=== PATIENT | female | born 1940 | race Caucasian/White ===

== ENCOUNTER 2023-07-23 15:25 | Inpatient (IN) ==
[2023-07-23] MEDS ORDERED: IOPAMIDOL 100 ML BOTTLE IV ONE (15:26)
[2023-07-23] MEDS ORDERED: cefTRIAXone 2 GM in DEXTROSE 5% IN WATER 50 ML IV ONE (16:00)
[2023-07-23 16:01] LABS: POC Calcium, Ionized 1.18 (1.16-1.32); POC Creatinine 1.4 (0.6-1.2); POC Potassium 4.4 (3.3-5.1)
[2023-07-23] MEDS ORDERED: AZITHROMYCIN 250 MG TABLET PO ONE (16:07)
[2023-07-23 16:56] LABS: Basophils # (Auto) 0.04 K/mcL (0.00-0.30); Basophils % (Auto) 0.3 % (0.0-2.0); Eosinophils # (Auto) 0 K/mcL (0.00-0.70); Eosinophils % (Auto) 0 % (0.0-7.0); Hematocrit 39.1 % (34.1-44.9); Hemoglobin 12.7 g/dL (11.2-15.7); Lymphocytes # (Auto) 1.22 K/mcL (1.50-4.80); Lymphocytes % (Auto) 8.5 % (15.5-49.0); Mean Cell Volume 89.5 fL (80.0-100.0); Mean Corpuscular HGB Conc 32.5 g/dL (31.0-36.0); Monocytes # (Auto) 2.26 K/mcL (0.10-0.90); Monocytes % (Auto) 15.8 % (1.0-12.0); Neutrophils % (Auto) 65.3 % (38.0-78.0); Platelet Count 122 K/mcL (140-440); RBC 4.37 M/mcL (3.59-5.38); Red Cell Distribution Width 13.6 % (11.5-14.5); WBC 14.3 K/mcL (4.5-11.0)
[2023-07-23] MEDS ORDERED: 0.9 % SODIUM CHLORIDE 250 ML IV SCH (17:15)
[2023-07-23] MEDS: ESMOLOL 2,500 MG in PREMIX 1 BAG IV SCH (17:40)
[2023-07-23 19:01] LABS: Albumin 4.2 gm/dL (3.2-5.2); Bilirubin,Direct 0.2 mg/dL (<0.3); Bilirubin,Total 1.1 mg/dL (0.1-1.0)
[2023-07-23 19:16] LABS: Thyroid Stimulating Hormone 3.5 uIU/mL (0.27-5.01)
[2023-07-23] MEDS ORDERED: POTASSIUM CHLORIDE 20 MEQ TABLET PO PRN ×2 (19:31)
[2023-07-23] MEDS ORDERED: SENNOSIDES 1 TABLET PO PRN (19:31)
[2023-07-23] MEDS ORDERED: ONDANSETRON 4 MG/2 ML VIAL IV PRN (19:31)
[2023-07-23] MEDS ORDERED: 0.9 % SODIUM CHLORIDE 1,000 ML IV SCH (19:31)
[2023-07-23] MEDS ORDERED: DEXTROSE 50% 50 ML VIAL IV PRN (19:31)
[2023-07-23] MEDS ORDERED: MAGNESIUM SULFATE 2 GM/50 ML BAG IV PRN (19:31)
[2023-07-23] MEDS ORDERED: DEXTROSE 31 GM ORAL.SUSP PO PRN (19:31)
[2023-07-23] MEDS ORDERED: METOPROLOL TARTRATE 5 MG/5 ML VIAL IV PRN (19:31)
[2023-07-23] MEDS ORDERED: POLYETHYLENE GLYCOL 3350 17 GM PACKET PO PRN (19:31)
[2023-07-23] MEDS ORDERED: POTASSIUM CHLORIDE 40 MEQ in DEXTROSE 5% IN WATER 500 ML IV PRN (19:31)
[2023-07-23] MEDS ORDERED: MAGNESIUM SULFATE 2 GM/50 ML BAG IV ONE (20:14)
[2023-07-23] MEDS: METOPROLOL TARTRATE 25 MG TABLET PO SCH (20:29)
[2023-07-23] MEDS: INSULIN LISPRO 1 UNIT/0.01 ML UNIT SQ SCH (20:57)
[2023-07-23] MEDS: DOCUSATE SODIUM 100 MG CAPSULE PO SCH (21:59)
[2023-07-23] MEDS ORDERED: INSULIN GLARGINE, HUMAN 1 UNIT/0.01 ML SQ ONE (22:04)
[2023-07-23] MEDS: INSULIN GLARGINE, HUMAN 1 UNIT/0.01 ML SQ SCH (22:07)
[2023-07-23] MEDS: CEFEPIME 2 GM VIAL IV SCH (22:08)
[2023-07-24] MEDS: ESMOLOL 2,500 MG in PREMIX 1 BAG IV SCH ×3 (01:22→19:00)
[2023-07-24] MEDS: CEFEPIME 2 GM VIAL IV SCH ×2 (05:46→19:09)
[2023-07-24 06:30] LABS: Basophils # (Auto) 0.05 K/mcL (0.00-0.30); Basophils % (Auto) 0.4 % (0.0-2.0); Eosinophils # (Auto) 0.01 K/mcL (0.00-0.70); Eosinophils % (Auto) 0.1 % (0.0-7.0); Hematocrit 35.9 % (34.1-44.9); Hemoglobin 11.6 g/dL (11.2-15.7); Lymphocytes % (Auto) 8.6 % (15.5-49.0); Mean Cell Volume 91.8 fL (80.0-100.0); Mean Corpuscular HGB Conc 32.3 g/dL (31.0-36.0); Mean Platelet Volume 10.8 fL (8.8-12.5); Monocytes # (Auto) 1.62 K/mcL (0.10-0.90); Neutrophils % (Auto) 67.3 % (38.0-78.0); Platelet Count 107 K/mcL (140-440); RBC 3.91 M/mcL (3.59-5.38); WBC 11.6 K/mcL (4.5-11.0)
[2023-07-24 06:55] LABS: ALT/SGPT 10 U/L (<40); AST/SGOT 24 U/L (<32); Albumin 3.4 gm/dL (3.2-5.2); Albumin/Globulin Ratio 1.7 (1.0-2.3); Alkaline Phosphatase 57 U/L (39-117); Bilirubin,Direct < 0.2 mg/dL (0-0.3); Bilirubin,Total 0.8 mg/dL (0.1-1.0); Blood Urea Nitrogen 27 mg/dL (8-23); Calcium 8.5 mg/dL (8.6-10.4); Carbon Dioxide 18 mmol/L (22-30); Chloride 105 mmol/L (96-108); Glomerular Filtration Rate 38; Glucose 129 mg/dL (70-105); Lactate Dehydrogenase 410 U/L (135-225); Phosphorous 3.6 mg/dL (2.5-4.5); Triglycerides 129 mg/dL (<150); Uric Acid 5.4 mg/dL (2.5-8.0)
[2023-07-24] MEDS: ACETAMINOPHEN 325 MG TABLET PO PRN (07:22)
[2023-07-24] MEDS: INSULIN LISPRO 1 UNIT/0.01 ML UNIT SQ SCH ×4 (07:32→20:33)
[2023-07-24] MEDS: LOPERAMIDE 2 MG CAPSULE PO PRN (07:50)
[2023-07-24] MEDS: OMEPRAZOLE 20 MG CAPSULE PO SCH (08:41)
[2023-07-24] MEDS: LEVOTHYROXINE 150 MCG TABLET PO SCH (08:41)
[2023-07-24] MEDS ORDERED: DEXAMETHASONE 4 MG TABLET PO SCH (09:00)
[2023-07-24] MEDS: ASPIRIN 81 MG TAB.CHEW PO SCH (09:07)
[2023-07-24] MEDS: HYDROXYCHLOROQUINE 200 MG TABLET PO SCH ×2 (09:07→20:33)
[2023-07-24] MEDS: levETIRAcetam 500 MG TABLET PO SCH ×2 (09:07→20:33)
[2023-07-24] MEDS: amLODIPine 10 MG TABLET PO SCH (09:07)
[2023-07-24] MEDS: ENOXAPARIN 40 MG/0.4 ML SYRINGE SQ SCH (09:07)
[2023-07-24] MEDS: DOCUSATE SODIUM 100 MG CAPSULE PO SCH ×2 (09:07→20:23)
[2023-07-24] MEDS: SODIUM BICARBONATE 650 MG TABLET PO SCH ×3 (09:07→20:32)
[2023-07-24] MEDS: METOPROLOL TARTRATE 25 MG TABLET PO SCH ×2 (09:08→20:33)
[2023-07-24] MEDS: AZITHROMYCIN 500 MG in DEXTROSE 5% IN WATER 250 ML IV SCH (10:30)
[2023-07-24] MEDS: DICYCLOMINE 20 MG TABLET PO SCH ×2 (10:30→20:33)
[2023-07-24] MEDS: GABAPENTIN 100 MG CAPSULE PO SCH ×2 (15:04→20:33)
[2023-07-24] MEDS: INSULIN GLARGINE, HUMAN 1 UNIT/0.01 ML SQ SCH (20:33)
[2023-07-25] MEDS: ESMOLOL 2,500 MG in PREMIX 1 BAG IV SCH (03:27)
[2023-07-25] MEDS: CEFEPIME 2 GM VIAL IV SCH ×2 (05:54→16:58)
[2023-07-25 06:53] LABS: ALT/SGPT 10 U/L (<40); AST/SGOT 16 U/L (<32); Albumin 3.3 gm/dL (3.2-5.2); Albumin/Globulin Ratio 1.5 (1.0-2.3); Alkaline Phosphatase 57 U/L (39-117); Bilirubin,Direct < 0.2 mg/dL (0-0.3); Bilirubin,Total 0.6 mg/dL (0.1-1.0); Blood Urea Nitrogen 35 mg/dL (8-23); Calcium 8.6 mg/dL (8.6-10.4); Carbon Dioxide 15 mmol/L (22-30); Chloride 105 mmol/L (96-108); Globulin 2.2 gm/dL (2.2-3.7); Glomerular Filtration Rate 32; Glucose 250 mg/dL (70-105); Lactate Dehydrogenase 362 U/L (135-225); Phosphorous 3.9 mg/dL (2.5-4.5); Triglycerides 153 mg/dL (<150); Uric Acid 6.3 mg/dL (2.5-8.0)
[2023-07-25] MEDS ORDERED: ESMOLOL 2,500 MG in PREMIX 1 BAG IV PRN (07:45)
[2023-07-25] MEDS: DOCUSATE SODIUM 100 MG CAPSULE PO SCH ×2 (07:47→20:05)
[2023-07-25] MEDS: ENOXAPARIN 40 MG/0.4 ML SYRINGE SQ SCH (08:00)
[2023-07-25] MEDS: HYDROXYCHLOROQUINE 200 MG TABLET PO SCH ×2 (08:01→20:14)
[2023-07-25] MEDS: OMEPRAZOLE 20 MG CAPSULE PO SCH (08:01)
[2023-07-25] MEDS: levETIRAcetam 500 MG TABLET PO SCH ×2 (08:01→20:14)
[2023-07-25] MEDS: GABAPENTIN 100 MG CAPSULE PO SCH ×3 (08:01→20:13)
[2023-07-25] MEDS: LEVOTHYROXINE 150 MCG TABLET PO SCH (08:01)
[2023-07-25] MEDS: LOPERAMIDE 2 MG CAPSULE PO PRN (08:01)
[2023-07-25] MEDS: amLODIPine 10 MG TABLET PO SCH (08:01)
[2023-07-25] MEDS: ASPIRIN 81 MG TAB.CHEW PO SCH (08:01)
[2023-07-25] MEDS: SODIUM BICARBONATE 650 MG TABLET PO SCH ×3 (08:01→20:14)
[2023-07-25] MEDS: AZITHROMYCIN 500 MG in DEXTROSE 5% IN WATER 250 ML IV SCH (08:31)
[2023-07-25] MEDS: DICYCLOMINE 20 MG TABLET PO SCH ×2 (08:31→20:14)
[2023-07-25] MEDS: METOPROLOL TARTRATE 25 MG TABLET PO SCH ×2 (08:31→20:14)
[2023-07-25] MEDS: INSULIN LISPRO 1 UNIT/0.01 ML UNIT SQ SCH ×4 (08:45→20:15)
[2023-07-25] MEDS ORDERED: INSULIN GLARGINE, HUMAN 1 UNIT/0.01 ML SQ SCH (09:00)
[2023-07-25] MEDS: hydrALAZINE 20 MG/ML VIAL IV PRN (16:57)
[2023-07-25] MEDS: ACETAMINOPHEN 325 MG TABLET PO PRN (17:44)
[2023-07-25] MEDS: IPRATROPIUM/ALBUTEROL 3 ML AMPUL.NEB NEB PRN (18:03)
[2023-07-25] MEDS: INSULIN GLARGINE, HUMAN 1 UNIT/0.01 ML SQ SCH (20:15)
[2023-07-26] MEDS: CEFEPIME 2 GM VIAL IV SCH ×2 (05:22→17:18)
[2023-07-26] MEDS: LEVOTHYROXINE 150 MCG TABLET PO SCH (06:52)
[2023-07-26] MEDS: OMEPRAZOLE 20 MG CAPSULE PO SCH (06:52)
[2023-07-26] MEDS: INSULIN LISPRO 1 UNIT/0.01 ML UNIT SQ SCH ×4 (06:54→20:15)
[2023-07-26] MEDS: IPRATROPIUM/ALBUTEROL 3 ML AMPUL.NEB NEB PRN (07:03)
[2023-07-26 07:07] LABS: Blood Urea Nitrogen 38 mg/dL (8-23); Calcium 8.8 mg/dL (8.6-10.4); Carbon Dioxide 19 mmol/L (22-30); Chloride 105 mmol/L (96-108); Glomerular Filtration Rate 35; Glucose 100 mg/dL (70-105)
[2023-07-26] MEDS: LABETALOL HCL 20 MG/4 ML VIAL IV PRN ×2 (07:47→19:02)
[2023-07-26] MEDS: METOPROLOL TARTRATE 25 MG TABLET PO SCH ×2 (08:04→20:14)
[2023-07-26] MEDS: levETIRAcetam 500 MG TABLET PO SCH ×2 (08:04→20:14)
[2023-07-26] MEDS: amLODIPine 10 MG TABLET PO SCH (08:04)
[2023-07-26] MEDS: ASPIRIN 81 MG TAB.CHEW PO SCH (08:04)
[2023-07-26] MEDS: DICYCLOMINE 20 MG TABLET PO SCH ×2 (08:04→20:14)
[2023-07-26] MEDS: HYDROXYCHLOROQUINE 200 MG TABLET PO SCH ×2 (08:04→20:14)
[2023-07-26] MEDS: ENOXAPARIN 40 MG/0.4 ML SYRINGE SQ SCH (08:05)
[2023-07-26] MEDS: DOCUSATE SODIUM 100 MG CAPSULE PO SCH ×2 (08:05→20:07)
[2023-07-26] MEDS: GABAPENTIN 100 MG CAPSULE PO SCH ×3 (08:05→20:14)
[2023-07-26] MEDS: IPRATROPIUM/ALBUTEROL 3 ML AMPUL.NEB NEB SCH ×2 (11:17→19:00)
[2023-07-26] MEDS: BUDESONIDE 0.5 MG/2 ML AMPUL.NEB NEB SCH ×2 (11:18→19:00)
[2023-07-26] MEDS: FUROSEMIDE 20 MG/2 ML VIAL IV SCH ×2 (14:08→21:59)
[2023-07-26] MEDS: LOPERAMIDE 2 MG CAPSULE PO PRN (14:12)
[2023-07-26] MEDS: hydrALAZINE 20 MG/ML VIAL IV PRN ×2 (15:50→20:04)
[2023-07-26 18:24] LABS: Phosphorous 3.2 mg/dL (2.5-4.5)
[2023-07-26] MEDS: INSULIN GLARGINE, HUMAN 1 UNIT/0.01 ML SQ SCH (20:15)
[2023-07-27] MEDS: IPRATROPIUM/ALBUTEROL 3 ML AMPUL.NEB NEB SCH ×4 (00:52→21:24)
[2023-07-27] MEDS: FUROSEMIDE 20 MG/2 ML VIAL IV SCH ×3 (05:18→21:12)
[2023-07-27] MEDS: CEFEPIME 2 GM VIAL IV SCH (05:19)
[2023-07-27] MEDS: BUDESONIDE 0.5 MG/2 ML AMPUL.NEB NEB SCH ×2 (06:35→21:24)
[2023-07-27] MEDS: INSULIN LISPRO 1 UNIT/0.01 ML UNIT SQ SCH ×4 (07:15→20:16)
[2023-07-27 07:21] LABS: Basophils # (Auto) 0.07 K/mcL (0.00-0.30); Eosinophils # (Auto) 0.14 K/mcL (0.00-0.70); Hematocrit 34.7 % (34.1-44.9); Hemoglobin 11.1 g/dL (11.2-15.7); Lymphocytes # (Auto) 0.76 K/mcL (1.50-4.80); Mean Cell Volume 90.1 fL (80.0-100.0); Mean Platelet Volume 10.9 fL (8.8-12.5); Monocytes # (Auto) 1.05 K/mcL (0.10-0.90); Monocytes % (Auto) 15.3 % (1.0-12.0); Platelet Count 139 K/mcL (140-440); RBC 3.85 M/mcL (3.59-5.38); Red Cell Distribution Width 13.9 % (11.5-14.5); WBC 6.9 K/mcL (4.5-11.0)
[2023-07-27 07:27] LABS: ALT/SGPT 11 U/L (<40); AST/SGOT 16 U/L (<32); Albumin 3.2 gm/dL (3.2-5.2); Albumin/Globulin Ratio 1.5 (1.0-2.3); Alkaline Phosphatase 51 U/L (39-117); Bilirubin,Total 0.6 mg/dL (0.1-1.0); Blood Urea Nitrogen 37 mg/dL (8-23); Calcium 8.4 mg/dL (8.6-10.4); Carbon Dioxide 18 mmol/L (22-30); Chloride 107 mmol/L (96-108); Globulin 2.1 gm/dL (2.2-3.7); Glomerular Filtration Rate 42; Glucose 214 mg/dL (70-105)
[2023-07-27] MEDS: OMEPRAZOLE 20 MG CAPSULE PO SCH (07:33)
[2023-07-27] MEDS: LEVOTHYROXINE 150 MCG TABLET PO SCH (07:33)
[2023-07-27] MEDS: levETIRAcetam 500 MG TABLET PO SCH ×2 (08:54→20:16)
[2023-07-27] MEDS: GABAPENTIN 100 MG CAPSULE PO SCH ×3 (08:54→20:16)
[2023-07-27] MEDS: DICYCLOMINE 20 MG TABLET PO SCH ×2 (08:54→20:16)
[2023-07-27] MEDS: HYDROXYCHLOROQUINE 200 MG TABLET PO SCH ×2 (08:54→20:16)
[2023-07-27] MEDS: METOPROLOL TARTRATE 25 MG TABLET PO SCH ×2 (08:54→20:16)
[2023-07-27] MEDS: ENOXAPARIN 40 MG/0.4 ML SYRINGE SQ SCH (08:54)
[2023-07-27] MEDS: ASPIRIN 81 MG TAB.CHEW PO SCH (08:54)
[2023-07-27] MEDS: amLODIPine 10 MG TABLET PO SCH (08:55)
[2023-07-27] MEDS: DOCUSATE SODIUM 100 MG CAPSULE PO SCH ×2 (09:15→20:04)
[2023-07-27] MEDS: LOPERAMIDE 2 MG CAPSULE PO PRN (09:16)
[2023-07-27] MEDS: hydrALAZINE 20 MG/ML VIAL IV PRN ×2 (12:07→18:54)
[2023-07-27] MEDS: CHLORTHALIDONE 25 MG TABLET PO SCH (16:03)
[2023-07-27] MEDS: LOSARTAN 50 MG TABLET PO SCH (16:03)
[2023-07-27] MEDS ORDERED: MAGNESIUM SULFATE 2 GM/50 ML BAG IV ONE (16:09)
[2023-07-27] MEDS ORDERED: cefTRIAXone 2 GM VIAL ONE (19:12)
[2023-07-27] MEDS: INSULIN GLARGINE, HUMAN 1 UNIT/0.01 ML SQ SCH (20:16)
[2023-07-27] MEDS: cefTRIAXone 2 GM in DEXTROSE 5% IN WATER 50 ML IV SCH (20:19)
[2023-07-28] MEDS: LOPERAMIDE 2 MG CAPSULE PO PRN ×2 (00:30→15:26)
[2023-07-28] MEDS: FUROSEMIDE 20 MG/2 ML VIAL IV SCH ×2 (05:15→15:26)
[2023-07-28] MEDS: BUDESONIDE 0.5 MG/2 ML AMPUL.NEB NEB SCH (07:26)
[2023-07-28] MEDS: IPRATROPIUM/ALBUTEROL 3 ML AMPUL.NEB NEB SCH ×2 (07:27→11:42)
[2023-07-28] MEDS: OMEPRAZOLE 20 MG CAPSULE PO SCH (07:56)
[2023-07-28] MEDS: LEVOTHYROXINE 150 MCG TABLET PO SCH (07:56)
[2023-07-28] MEDS ORDERED: cefTRIAXone 2 GM VIAL ONE (08:26)
[2023-07-28] MEDS: INSULIN LISPRO 1 UNIT/0.01 ML UNIT SQ SCH ×2 (08:30→12:44)
[2023-07-28] MEDS: DICYCLOMINE 20 MG TABLET PO SCH (08:32)
[2023-07-28] MEDS: GABAPENTIN 100 MG CAPSULE PO SCH ×2 (08:32→15:26)
[2023-07-28] MEDS: levETIRAcetam 500 MG TABLET PO SCH (08:32)
[2023-07-28] MEDS: ENOXAPARIN 40 MG/0.4 ML SYRINGE SQ SCH (08:32)
[2023-07-28] MEDS: METOPROLOL TARTRATE 25 MG TABLET PO SCH (08:32)
[2023-07-28] MEDS: amLODIPine 10 MG TABLET PO SCH (08:32)
[2023-07-28] MEDS: LOSARTAN 50 MG TABLET PO SCH (08:33)
[2023-07-28] MEDS: HYDROXYCHLOROQUINE 200 MG TABLET PO SCH (08:33)
[2023-07-28] MEDS: ASPIRIN 81 MG TAB.CHEW PO SCH (08:33)
[2023-07-28] MEDS: CHLORTHALIDONE 25 MG TABLET PO SCH (08:33)
[2023-07-28] MEDS: DOCUSATE SODIUM 100 MG CAPSULE PO SCH (08:34)
[2023-07-28] MEDS: cefTRIAXone 2 GM in DEXTROSE 5% IN WATER 50 ML IV SCH (09:05)
[2023-07-31] MEDS ORDERED: INSULIN GLARGINE, HUMAN 1 UNIT/0.01 ML SQ SCH (21:00)
== END 2023-07-28 16:00 | disposition home or self-care (01) | DRG 871 ==
LOC: ED 15:25 → ICU 19:22 → MEDSUR 07-25 11:00
PROVIDERS: ADMIT Internal Medicine; ATTEND Internal Medicine

== ENCOUNTER 2024-09-01 15:30 | Inpatient (IN) ==
[2024-09-01] MEDS ORDERED: IOPAMIDOL 100 ML BOTTLE IV ONE (15:31)
[2024-09-01 16:20] LABS: Basophils # (Auto) 0.02 K/mcL (0.00-0.30); Basophils % (Auto) 0.2 % (0.0-2.0); Eosinophils # (Auto) 0.27 K/mcL (0.00-0.70); Eosinophils % (Auto) 3.3 % (0.0-7.0); Hematocrit 36.3 % (34.1-44.9); Mean Cell Volume 88.8 fL (80.0-100.0); Mean Corpuscular HGB Conc 30.3 g/dL (31.0-36.0); Mean Platelet Volume 10.3 fL (8.8-12.5); Monocytes # (Auto) 1.29 K/mcL (0.10-0.90); Monocytes % (Auto) 15.8 % (1.0-12.0); Neutrophils % (Auto) 64.7 % (38.0-78.0); Platelet Count 218 K/mcL (140-440); RBC 4.09 M/mcL (3.59-5.38); Red Cell Distribution Width 13.9 % (11.5-14.5); WBC 8.2 K/mcL (4.5-11.0)
[2024-09-01 16:41] LABS: ALT/SGPT < 5 U/L (<40); AST/SGOT 23 U/L (<32); Albumin 3.4 gm/dL (3.2-5.2); Albumin/Globulin Ratio 1.4 (1.0-2.3); Alkaline Phosphatase 77 U/L (39-117); Bilirubin,Total 0.4 mg/dL (0.1-1.0); Blood Urea Nitrogen 30 mg/dL (8-23); Calcium 8.6 mg/dL (8.6-10.4); Carbon Dioxide 21 mmol/L (22-30); Chloride 102 mmol/L (96-108); Globulin 2.5 gm/dL (2.2-3.7); Glomerular Filtration Rate 42; Glucose 144 mg/dL (70-105); Potassium 4.6 mmol/L (3.3-5.1); Sodium 137 mmol/L (133-145)
[2024-09-01 16:44] LABS: Appearance,Urine Cloudy (Clear); Bacteria,Urine Many /hpf (0); Color,Urine Brown; Glucose,Urine (UA) Negative (Negative); Ketones,Urine Trace mg/dL (Negative); Leukocyte Esterase,Urine Trace /uL (Negative); Nitrate,Urine Negative (Negative); Protein,Urine >=300 mg/dL (Negative); Specific Gravity,Urine 1.025 (1.000-1.035); Urine Blood Large ery/mcL (Negative); Urine RBC > 182 /hpf (0-1); Urine Squamous Epithelial Cell 1 /hpf (0-4); Urine WBC 50 /hpf (0-4); Urobilinogen,Urine Normal
[2024-09-01] MEDS: cefTRIAXone 1 GM VIAL IV ONE (18:32)
[2024-09-01] MEDS ORDERED: DEXTROSE 31 GM ORAL.SUSP PO PRN (20:17)
[2024-09-01] MEDS ORDERED: DEXTROSE 50% 50 ML VIAL IV PRN (20:17)
[2024-09-01] MEDS ORDERED: ONDANSETRON 4 MG/2 ML VIAL IV PRN (20:17)
[2024-09-01] MEDS: INSULIN LISPRO 1 UNIT/0.01 ML UNIT SQ SCH (20:40)
[2024-09-01] MEDS: SENNOSIDES 1 TABLET PO SCH (20:55)
[2024-09-01] MEDS: HEPARIN 5,000 UNIT/ML VIAL SQ SCH (20:55)
[2024-09-01] MEDS: DOCUSATE SODIUM 100 MG CAPSULE PO SCH (20:55)
[2024-09-01] MEDS: INSULIN GLARGINE, HUMAN 1 UNIT/0.01 ML SQ SCH (20:55)
[2024-09-01] MEDS: AZITHROMYCIN 500 MG in 0.9 % SODIUM CHLORIDE 250 ML IV SCH (21:20)
[2024-09-01] MEDS: MEROPENEM 1 GM in 0.9 % SODIUM CHLORIDE 50 ML IV SCH (21:37)
[2024-09-01] MEDS: 0.9 % SODIUM CHLORIDE 10 ML SYRINGE IV SCH (21:40)
[2024-09-02] MEDS: IPRATROPIUM/ALBUTEROL 3 ML AMPUL.NEB NEB SCH (01:09)
[2024-09-02 06:30] LABS: ALT/SGPT < 5 U/L (<40); AST/SGOT 18 U/L (<32); Albumin/Globulin Ratio 1.7 (1.0-2.3); Alkaline Phosphatase 61 U/L (39-117); Bilirubin,Direct < 0.2 mg/dL (0-0.3); Bilirubin,Total 0.4 mg/dL (0.1-1.0); Blood Urea Nitrogen 29 mg/dL (8-23); Calcium 8.3 mg/dL (8.6-10.4); Carbon Dioxide 23 mmol/L (22-30); Chloride 107 mmol/L (96-108); Globulin 1.8 gm/dL (2.2-3.7); Glomerular Filtration Rate 47; Glucose 152 mg/dL (70-105); Lactate Dehydrogenase 286 U/L (135-225); Phosphorous 4.1 mg/dL (2.5-4.5); Potassium 4.6 mmol/L (3.3-5.1); Sodium 140 mmol/L (133-145); Triglycerides 153 mg/dL (<150); Uric Acid 6.6 mg/dL (2.5-8.0)
[2024-09-02 07:30] LABS: Basophils # (Auto) 0.01 K/mcL (0.00-0.30); Basophils % (Auto) 0.2 % (0.0-2.0); Eosinophils # (Auto) 0.32 K/mcL (0.00-0.70); Eosinophils % (Auto) 5.2 % (0.0-7.0); Hematocrit 31.5 % (34.1-44.9); Hemoglobin 9.6 g/dL (11.2-15.7); Lymphocytes % (Auto) 11.3 % (15.5-49.0); Mean Cell Volume 88.5 fL (80.0-100.0); Mean Corpuscular HGB Conc 30.5 g/dL (31.0-36.0); Monocytes # (Auto) 0.99 K/mcL (0.10-0.90); Neutrophils % (Auto) 61.8 % (38.0-78.0); Platelet Count 205 K/mcL (140-440); RBC 3.56 M/mcL (3.59-5.38); Red Cell Distribution Width 13.8 % (11.5-14.5); WBC 6.2 K/mcL (4.5-11.0)
[2024-09-02] MEDS ORDERED: INSULIN LISPRO 1 UNIT/0.01 ML UNIT SQ SCH ×2 (07:35→07:40)
[2024-09-02] MEDS: INSULIN LISPRO 1 UNIT/0.01 ML UNIT SQ SCH (07:45)
[2024-09-02] MEDS: LOPERAMIDE 2 MG CAPSULE PO PRN (10:25)
[2024-09-02] MEDS: amLODIPine 10 MG TABLET PO SCH (11:31)
[2024-09-02] MEDS ORDERED: LOPERAMIDE 2 MG CAPSULE PO PRN (13:16)
[2024-09-02 14:01] LABS: Hematocrit 31.6 % (34.1-44.9); Hemoglobin 9.6 g/dL (11.2-15.7)
[2024-09-02] MEDS: GABAPENTIN 100 MG CAPSULE PO SCH (14:23)
[2024-09-02] MEDS: DEXAMETHASONE 4 MG TABLET PO SCH (14:23)
[2024-09-02] MEDS: MEROPENEM 1 GM in 0.9 % SODIUM CHLORIDE 50 ML IV SCH (19:59)
[2024-09-02] MEDS: ASPIRIN 81 MG TAB.CHEW PO SCH (20:17)
[2024-09-02] MEDS: levETIRAcetam 500 MG TABLET PO SCH (20:17)
[2024-09-02] MEDS: OMEPRAZOLE 20 MG CAPSULE PO SCH (20:17)
[2024-09-02] MEDS: METOPROLOL TARTRATE 25 MG TABLET PO SCH (20:17)
[2024-09-02] MEDS: ATORVASTATIN 10 MG TABLET PO SCH (20:17)
[2024-09-02] MEDS: HYDROXYCHLOROQUINE 200 MG TABLET PO SCH (20:17)
[2024-09-02] MEDS: DICYCLOMINE 20 MG TABLET PO SCH (20:41)
[2024-09-03 06:46] LABS: Basophils # (Auto) 0.02 K/mcL (0.00-0.30); Basophils % (Auto) 0.4 % (0.0-2.0); Eosinophils # (Auto) 0 K/mcL (0.00-0.70); Eosinophils % (Auto) 0 % (0.0-7.0); Hematocrit 32.5 % (34.1-44.9); Lymphocytes # (Auto) 0.34 K/mcL (1.50-4.80); Lymphocytes % (Auto) 7.3 % (15.5-49.0); Mean Cell Volume 88.6 fL (80.0-100.0); Mean Corpuscular HGB Conc 30.8 g/dL (31.0-36.0); Mean Platelet Volume 10.9 fL (8.8-12.5); Monocytes # (Auto) 0.27 K/mcL (0.10-0.90); Monocytes % (Auto) 5.8 % (1.0-12.0); Neutrophils % (Auto) 80.1 % (38.0-78.0); Platelet Count 214 K/mcL (140-440); RBC 3.67 M/mcL (3.59-5.38); Red Cell Distribution Width 13.4 % (11.5-14.5); WBC 4.7 K/mcL (4.5-11.0)
[2024-09-03 07:04] LABS: ALT/SGPT < 5 U/L (<40); AST/SGOT 15 U/L (<32); Albumin 3.1 gm/dL (3.2-5.2); Albumin/Globulin Ratio 1.6 (1.0-2.3); Alkaline Phosphatase 63 U/L (39-117); Bilirubin,Direct < 0.2 mg/dL (0-0.3); Bilirubin,Total 0.3 mg/dL (0.1-1.0); Blood Urea Nitrogen 37 mg/dL (8-23); Calcium 8.7 mg/dL (8.6-10.4); Carbon Dioxide 21 mmol/L (22-30); Chloride 103 mmol/L (96-108); Globulin 1.9 gm/dL (2.2-3.7); Glomerular Filtration Rate 47; Glucose 333 mg/dL (70-105); Lactate Dehydrogenase 322 U/L (135-225); Potassium 5.2 mmol/L (3.3-5.1); Sodium 136 mmol/L (133-145); Triglycerides 118 mg/dL (<150); Uric Acid 6.9 mg/dL (2.5-8.0)
[2024-09-03] MEDS: LEVOTHYROXINE 150 MCG TABLET PO SCH (07:18)
[2024-09-03] MEDS: CHLORTHALIDONE 25 MG TABLET PO SCH (08:17)
[2024-09-03] MEDS: FOLIC ACID 1 MG TABLET PO SCH (20:59)
[2024-09-03] MEDS: LORATADINE 10 MG TABLET PO SCH (20:59)
[2024-09-03] MEDS: INSULIN GLARGINE, HUMAN 1 UNIT/0.01 ML SQ SCH (21:13)
[2024-09-04 06:55] LABS: ALT/SGPT < 5 U/L (<40); AST/SGOT 20 U/L (<32); Albumin 3.1 gm/dL (3.2-5.2); Albumin/Globulin Ratio 1.9 (1.0-2.3); Alkaline Phosphatase 57 U/L (39-117); Bilirubin,Direct < 0.2 mg/dL (0-0.3); Bilirubin,Total 0.3 mg/dL (0.1-1.0); Blood Urea Nitrogen 36 mg/dL (8-23); Calcium 8.8 mg/dL (8.6-10.4); Carbon Dioxide 24 mmol/L (22-30); Chloride 108 mmol/L (96-108); Globulin 1.6 gm/dL (2.2-3.7); Glomerular Filtration Rate 52; Glucose 133 mg/dL (70-105); Lactate Dehydrogenase 333 U/L (135-225); Phosphorous 3.9 mg/dL (2.5-4.5); Potassium 4.6 mmol/L (3.3-5.1); Sodium 142 mmol/L (133-145); Triglycerides 96 mg/dL (<150); Uric Acid 7.4 mg/dL (2.5-8.0)
[2024-09-04] MEDS ORDERED: LOSARTAN 50 MG TABLET PO SCH (09:00)
[2024-09-04] MEDS: MAGNESIUM SULFATE 2 GM/50 ML BAG IV ONE ×2 (12:13→12:21)
[2024-09-04] MEDS: IPRATROPIUM/ALBUTEROL 3 ML AMPUL.NEB NEB PRN (12:55)
[2024-09-04] MEDS: ALBUTEROL SULFATE 2.5 MG/3 ML NEBULIZER NEB PRN (18:54)
[2024-09-05] MEDS: ENALAPRILAT 1.25 MG/ML VIAL IV PRN (05:14)
[2024-09-05] MEDS: ACETAMINOPHEN 325 MG TABLET PO PRN (05:21)
[2024-09-05 07:03] LABS: ALT/SGPT 7 U/L (<40); AST/SGOT 26 U/L (<32); Albumin 3.2 gm/dL (3.2-5.2); Albumin/Globulin Ratio 1.5 (1.0-2.3); Alkaline Phosphatase 65 U/L (39-117); Bilirubin,Direct 0.2 mg/dL (<0.3); Bilirubin,Total 0.4 mg/dL (0.1-1.0); Blood Urea Nitrogen 29 mg/dL (8-23); Calcium 8.8 mg/dL (8.6-10.4); Carbon Dioxide 27 mmol/L (22-30); Chloride 107 mmol/L (96-108); Globulin 2.1 gm/dL (2.2-3.7); Glomerular Filtration Rate 69; Glucose 103 mg/dL (70-105); Lactate Dehydrogenase 369 U/L (135-225); Phosphorous 3.5 mg/dL (2.5-4.5); Potassium 4.8 mmol/L (3.3-5.1); Sodium 143 mmol/L (133-145); Triglycerides 152 mg/dL (<150); Uric Acid 7.1 mg/dL (2.5-8.0)
[2024-09-05 08:10] VITALS: TEMP 97.7
[2024-09-05 11:50] VITALS: O2SAT 91
== END 2024-09-05 14:11 | disposition home or self-care (01) | DRG 177 ==
LOC: ED 15:30 → ICU 20:07 → MEDSUR 09-02 20:35
PROVIDERS: ADMIT Internal Medicine; ATTEND Internal Medicine

== ENCOUNTER 2025-06-02 11:52 | Inpatient (IN) ==
[2025-06-02] MEDS: 0.9 % SODIUM CHLORIDE 500 ML IV ONE ×2 (12:27→13:53)
[2025-06-02 12:56] LABS: Basophils # (Auto) 0.02 K/mcL (0.00-0.30); Basophils % (Auto) 0.3 % (0.0-2.0); Eosinophils # (Auto) 0.02 K/mcL (0.00-0.70); Eosinophils % (Auto) 0.3 % (0.0-7.0); Hematocrit 37.9 % (34.1-44.9); Hemoglobin 11.6 g/dL (11.2-15.7); Lymphocytes # (Auto) 0.37 K/mcL (1.50-4.80); Lymphocytes % (Auto) 5.9 % (15.5-49.0); Mean Corpuscular HGB Conc 30.6 g/dL (31.0-36.0); Monocytes # (Auto) 0.20 K/mcL (0.10-0.90); Monocytes % (Auto) 3.2 % (1.0-12.0); Neutrophils % (Auto) 82.7 % (38.0-78.0); Platelet Count 203 K/mcL (140-440); RBC 4.55 M/mcL (3.59-5.38); WBC 6.3 K/mcL (4.5-11.0)
[2025-06-02 13:01] LABS: ALT/SGPT 6 U/L (<40); AST/SGOT 26 U/L (<32); Albumin 3.9 gm/dL (3.2-5.2); Albumin/Globulin Ratio 1.4 (1.0-2.3); Alkaline Phosphatase 99 U/L (39-117); Anion Gap 10.0 (8.0-16.0); Bilirubin,Total 0.5 mg/dL (0.1-1.0); Blood Urea Nitrogen 61 mg/dL (8-23); Calcium 9.2 mg/dL (8.6-10.4); Carbon Dioxide 17 mmol/L (22-30); Chloride 107 mmol/L (96-108); Globulin 2.7 gm/dL (2.2-3.7); Glucose 221 mg/dL (70-105); Potassium 5.5 mmol/L (3.3-5.1); Sodium 134 mmol/L (133-145)
[2025-06-02 13:04] LABS: Bacteria,Urine Many /hpf (0); Bilirubin,Urine NEGATIVE (Negative); Color,Urine RED; Glucose,Urine (UA) NEGATIVE (Negative); Ketones,Urine NEGATIVE (Negative); Leukocyte Esterase,Urine MODERATE /uL (Negative); PH,Urine 6.0 (5.0-9.0); Protein,Urine 30 mg/dL (Negative); Specific Gravity,Urine 1.025 (1.000-1.035); Urobilinogen,Urine 0.2 mg/dL
[2025-06-02] MEDS ORDERED: NYSTATIN POWDER BOTTLE 15GM TOPICAL PRN (15:06)
[2025-06-02] MEDS ORDERED: FLUTICASONE PROPIONATE SPRAY.NAS NS PRN (15:06)
[2025-06-02] MEDS ORDERED: CLOBETASOL PROPIONATE 1 DOSE TUBE TOPICAL PRN (15:06)
[2025-06-02] MEDS ORDERED: NON FORMULARY MEDICATION 1 DOSE MISCELL (Acetaminophen 500 mg Capsule) PO PRN (15:06)
[2025-06-02] MEDS ORDERED: ONDANSETRON 4 MG/2 ML VIAL IV PRN (16:02)
[2025-06-02] MEDS ORDERED: DEXTROSE 31 GM ORAL.SUSP PO PRN (16:02)
[2025-06-02] MEDS ORDERED: hydrALAZINE 20 MG/ML VIAL IV PRN (16:02)
[2025-06-02] MEDS ORDERED: DEXTROSE 50% 50 ML VIAL IV PRN (16:02)
[2025-06-02] MEDS: INSULIN LISPRO 1 UNIT/0.01 ML UNIT SQ SCH (16:49)
[2025-06-02] MEDS: IPRATROPIUM/ALBUTEROL SULFATE 1 PUFF INHALER INH SCH (16:49)
[2025-06-02] MEDS: DEXAMETHASONE 4 MG TABLET PO SCH (16:50)
[2025-06-02] MEDS: 0.9 % SODIUM CHLORIDE 1,000 ML IV SCH (16:51)
[2025-06-02] MEDS: PIPERACILLIN SODIUM/TAZOBACTAM 3.375 GM in DEXTROSE 5% IN WATER 50 ML IV ONE (17:50)
[2025-06-02] MEDS ORDERED: 0.9 % SODIUM CHLORIDE 10 ML SYRINGE IV PRN (19:28)
[2025-06-02] MEDS: Fluticasone-Umeclidinium-Vilanterol [Trelegy Ellipta] Inhaler INH SCH (20:30)
[2025-06-02] MEDS: SENNOSIDES 1 TABLET PO SCH (20:40)
[2025-06-02] MEDS: DOCUSATE SODIUM 100 MG CAPSULE PO SCH (20:40)
[2025-06-02] MEDS: INSULIN GLARGINE, HUMAN 1 UNIT/0.01 ML SQ SCH (20:40)
[2025-06-02] MEDS: ATORVASTATIN 10 MG TABLET PO SCH (20:42)
[2025-06-02] MEDS: guaiFENesin 600 MG TAB.SR.12H PO SCH (20:42)
[2025-06-02] MEDS: ASPIRIN 81 MG TAB.CHEW PO SCH (20:42)
[2025-06-02] MEDS: CALCIUM (OYSTER SHELL) 500 MG TABLET PO SCH (20:44)
[2025-06-02] MEDS: MAGNESIUM OXIDE 400 MG TABLET PO SCH (20:44)
[2025-06-02] MEDS: OMEPRAZOLE 20 MG CAPSULE PO SCH (20:44)
[2025-06-02] MEDS: LORATADINE 10 MG TABLET PO SCH (20:45)
[2025-06-02] MEDS: FOLIC ACID 1 MG TABLET PO SCH (20:45)
[2025-06-02] MEDS: VITAMIN D3 25 MCG TABLET PO SCH (20:45)
[2025-06-02] MEDS: METOPROLOL TARTRATE 25 MG TABLET PO SCH (20:46)
[2025-06-02] MEDS: FISH OIL 1,000 MG CAPSULE PO SCH (20:46)
[2025-06-02] MEDS: APIXABAN 5 MG TABLET PO SCH (20:46)
[2025-06-02] MEDS: HEPARIN 500 UNIT/5 ML SYRINGE IV SCH (20:51)
[2025-06-02] MEDS: CLOTRIMAZOLE 10 MG TROCHE PO SCH (20:52)
[2025-06-02] MEDS: 0.9 % SODIUM CHLORIDE 10 ML SYRINGE IV SCH ×2 (20:52→20:53)
[2025-06-02] MEDS: LATANOPROST OPHTH DROPS 2.5ML BOTTLE OU SCH (20:53)
[2025-06-02] MEDS: PIPERACILLIN SODIUM/TAZOBACTAM 3.375 GM in DEXTROSE 5% IN WATER 100 ML IV SCH (21:50)
[2025-06-03] MEDS: DIPHENOXYLATE HCL/ATROPINE 1 TABLET PO PRN (05:27)
[2025-06-03 07:09] LABS: Basophils # (Auto) 0.02 K/mcL (0.00-0.30); Basophils % (Auto) 0.4 % (0.0-2.0); Eosinophils # (Auto) 0 K/mcL (0.00-0.70); Eosinophils % (Auto) 0 % (0.0-7.0); Hematocrit 33.9 % (34.1-44.9); Hemoglobin 10.2 g/dL (11.2-15.7); Lymphocytes # (Auto) 0.78 K/mcL (1.50-4.80); Lymphocytes % (Auto) 14.6 % (15.5-49.0); Mean Corpuscular HGB Conc 30.1 g/dL (31.0-36.0); Monocytes # (Auto) 0.76 K/mcL (0.10-0.90); Monocytes % (Auto) 14.2 % (1.0-12.0); Neutrophils % (Auto) 59.8 % (38.0-78.0); Platelet Count 205 K/mcL (140-440); RBC 4.03 M/mcL (3.59-5.38); WBC 5.3 K/mcL (4.5-11.0)
[2025-06-03] MEDS ORDERED: LEVOTHYROXINE SODIUM 175 MCG TABLET PO SCH (07:30)
[2025-06-03 07:34] LABS: ALT/SGPT 7 U/L (<40); AST/SGOT 20 U/L (<32); Albumin 3.3 gm/dL (3.2-5.2); Albumin/Globulin Ratio 1.5 (1.0-2.3); Alkaline Phosphatase 79 U/L (39-117); Anion Gap 7.0 (8.0-16.0); Bilirubin,Total 0.6 mg/dL (0.1-1.0); Blood Urea Nitrogen 53 mg/dL (8-23); Calcium 9.2 mg/dL (8.6-10.4); Carbon Dioxide 18 mmol/L (22-30); Chloride 111 mmol/L (96-108); Globulin 2.2 gm/dL (2.2-3.7); Glucose 241 mg/dL (70-105); Potassium 5.0 mmol/L (3.3-5.1); Sodium 136 mmol/L (133-145)
[2025-06-03 07:54] LABS: Estimated Average Glucose(eAG) 197 mg/dL; Hemoglobin A1C 8.5 % Hgb (4.0-6.0)
[2025-06-03] MEDS: LEVOTHYROXINE 100 MCG TABLET PO SCH (08:13)
[2025-06-03] MEDS: LEVOTHYROXINE 75 MCG TABLET PO SCH (08:13)
[2025-06-03] MEDS ORDERED: CRANBERRY PO SCH (09:00)
[2025-06-03] MEDS ORDERED: ESTRADIOL VAG CREAM 42GM TUBE VAG SCH (09:00)
[2025-06-03] MEDS ORDERED: CRANBERRY EXTRACT 300 MG PO SCH (09:00)
[2025-06-03] MEDS ORDERED: PROBIOTIC PO SCH (09:00)
[2025-06-03] MEDS ORDERED: PRE PO SCH (09:00)
[2025-06-03] MEDS ORDERED: DEXTROSE 31 GM ORAL.SUSP PO PRN (10:53)
[2025-06-03] MEDS ORDERED: DEXTROSE 50% 50 ML VIAL IV PRN (10:53)
[2025-06-03] MEDS: IPRATROPIUM/ALBUTEROL 3 ML AMPUL.NEB NEB PRN (11:34)
[2025-06-03] MEDS: BUDESONIDE 0.5 MG/2 ML AMPUL.NEB NEB SCH (12:10)
[2025-06-03] MEDS: INSULIN LISPRO 1 UNIT/0.01 ML UNIT SQ SCH (13:05)
[2025-06-04 07:51] LABS: ALT/SGPT 7 U/L (<40); AST/SGOT 19 U/L (<32); Albumin 3.3 gm/dL (3.2-5.2); Albumin/Globulin Ratio 1.7 (1.0-2.3); Alkaline Phosphatase 70 U/L (39-117); Anion Gap 7.0 (8.0-16.0); Bilirubin,Total 0.4 mg/dL (0.1-1.0); Blood Urea Nitrogen 36 mg/dL (8-23); Calcium 8.7 mg/dL (8.6-10.4); Carbon Dioxide 19 mmol/L (22-30); Chloride 115 mmol/L (96-108); Globulin 1.9 gm/dL (2.2-3.7); Glucose 145 mg/dL (70-105); Potassium 4.8 mmol/L (3.3-5.1); Sodium 141 mmol/L (133-145)
[2025-06-04 07:54] LABS: Basophils # (Auto) 0.03 K/mcL (0.00-0.30); Basophils % (Auto) 0.7 % (0.0-2.0); Eosinophils # (Auto) 0.13 K/mcL (0.00-0.70); Eosinophils % (Auto) 3.0 % (0.0-7.0); Hematocrit 31.3 % (34.1-44.9); Hemoglobin 9.4 g/dL (11.2-15.7); Lymphocytes # (Auto) 0.73 K/mcL (1.50-4.80); Lymphocytes % (Auto) 17.1 % (15.5-49.0); Mean Corpuscular HGB Conc 30.0 g/dL (31.0-36.0); Monocytes # (Auto) 0.74 K/mcL (0.10-0.90); Monocytes % (Auto) 17.3 % (1.0-12.0); Neutrophils % (Auto) 60.0 % (38.0-78.0); Platelet Count 169 K/mcL (140-440); RBC 3.67 M/mcL (3.59-5.38); WBC 4.3 K/mcL (4.5-11.0)
[2025-06-04] MEDS: guaiFENesin/DEXTROMETHORPHAN 5ML UD CUP PO PRN (21:31)
[2025-06-05 06:38] LABS: ALT/SGPT < 5 U/L (<40); AST/SGOT 18 U/L (<32); Albumin 3.3 gm/dL (3.2-5.2); Albumin/Globulin Ratio 1.7 (1.0-2.3); Alkaline Phosphatase 68 U/L (39-117); Anion Gap 7.0 (8.0-16.0); Bilirubin,Total 0.6 mg/dL (0.1-1.0); Blood Urea Nitrogen 24 mg/dL (8-23); Calcium 8.7 mg/dL (8.6-10.4); Carbon Dioxide 21 mmol/L (22-30); Chloride 113 mmol/L (96-108); Globulin 2.0 gm/dL (2.2-3.7); Glucose 160 mg/dL (70-105); Potassium 4.8 mmol/L (3.3-5.1); Sodium 141 mmol/L (133-145)
[2025-06-05 06:40] LABS: Basophils # (Auto) 0.03 K/mcL (0.00-0.30); Basophils % (Auto) 0.7 % (0.0-2.0); Eosinophils # (Auto) 0.21 K/mcL (0.00-0.70); Eosinophils % (Auto) 4.7 % (0.0-7.0); Hematocrit 32.9 % (34.1-44.9); Hemoglobin 10.0 g/dL (11.2-15.7); Lymphocytes # (Auto) 0.83 K/mcL (1.50-4.80); Lymphocytes % (Auto) 18.5 % (15.5-49.0); Mean Corpuscular HGB Conc 30.4 g/dL (31.0-36.0); Monocytes # (Auto) 0.75 K/mcL (0.10-0.90); Monocytes % (Auto) 16.7 % (1.0-12.0); Neutrophils % (Auto) 58.3 % (38.0-78.0); Platelet Count 167 K/mcL (140-440); RBC 3.87 M/mcL (3.59-5.38); WBC 4.5 K/mcL (4.5-11.0)
[2025-06-05] MEDS: PNEUMOCOCCAL 23-VAL P-SAC VAC 0.5 ML SYRINGE IM ONE (10:23)
[2025-06-05] MEDS: FLU VACC TS2025-26(65YR UP)/PF 180 MCG/0.5 ML SYRINGE IM ONE (10:24)
[2025-06-05] MEDS: ACETAMINOPHEN 325 MG TABLET PO PRN (14:00)
[2025-06-05] MEDS: HEPARIN 500 UNIT/5 ML SYRINGE IV SCH (14:07)
[2025-06-05] MEDS: HEPARIN 10 UNITS/ML 5ML FLUSH IV SCH (20:41)
[2025-06-06 06:49] LABS: ALT/SGPT 5 U/L (<40); AST/SGOT 21 U/L (<32); Albumin 3.3 gm/dL (3.2-5.2); Albumin/Globulin Ratio 1.6 (1.0-2.3); Alkaline Phosphatase 69 U/L (39-117); Anion Gap 8.0 (8.0-16.0); Bilirubin,Total 0.5 mg/dL (0.1-1.0); Blood Urea Nitrogen 20 mg/dL (8-23); Calcium 8.5 mg/dL (8.6-10.4); Carbon Dioxide 22 mmol/L (22-30); Chloride 111 mmol/L (96-108); Globulin 2.1 gm/dL (2.2-3.7); Glucose 105 mg/dL (70-105); Potassium 4.2 mmol/L (3.3-5.1); Sodium 141 mmol/L (133-145)
[2025-06-06 06:50] LABS: Basophils # (Auto) 0.03 K/mcL (0.00-0.30); Basophils % (Auto) 0.7 % (0.0-2.0); Eosinophils # (Auto) 0.28 K/mcL (0.00-0.70); Eosinophils % (Auto) 6.2 % (0.0-7.0); Hematocrit 34.0 % (34.1-44.9); Hemoglobin 10.3 g/dL (11.2-15.7); Lymphocytes # (Auto) 0.68 K/mcL (1.50-4.80); Lymphocytes % (Auto) 15.0 % (15.5-49.0); Mean Corpuscular HGB Conc 30.3 g/dL (31.0-36.0); Monocytes # (Auto) 0.74 K/mcL (0.10-0.90); Monocytes % (Auto) 16.4 % (1.0-12.0); Neutrophils % (Auto) 56.8 % (38.0-78.0); Platelet Count 160 K/mcL (140-440); RBC 4.05 M/mcL (3.59-5.38); WBC 4.5 K/mcL (4.5-11.0)
[2025-06-07 07:55] LABS: ALT/SGPT < 5 U/L (<40); AST/SGOT 18 U/L (<32); Albumin 3.3 gm/dL (3.2-5.2); Albumin/Globulin Ratio 1.7 (1.0-2.3); Alkaline Phosphatase 68 U/L (39-117); Anion Gap 8.0 (8.0-16.0); Bilirubin,Direct 0.3 mg/dL (<0.3); Bilirubin,Total 0.5 mg/dL (0.1-1.0); Blood Urea Nitrogen 26 mg/dL (8-23); Calcium 8.8 mg/dL (8.6-10.4); Carbon Dioxide 23 mmol/L (22-30); Chloride 111 mmol/L (96-108); Globulin 2.0 gm/dL (2.2-3.7); Glucose 156 mg/dL (70-105); Phosphorous 4.2 mg/dL (2.5-4.5); Potassium 4.3 mmol/L (3.3-5.1); Sodium 142 mmol/L (133-145); Triglycerides 73 mg/dL (<150); Uric Acid 4.7 mg/dL (2.5-8.0)
[2025-06-07 08:12] LABS: Basophils # (Auto) 0.04 K/mcL (0.00-0.30); Basophils % (Auto) 0.9 % (0.0-2.0); Eosinophils # (Auto) 0.24 K/mcL (0.00-0.70); Eosinophils % (Auto) 5.4 % (0.0-7.0); Hematocrit 33.5 % (34.1-44.9); Hemoglobin 10.1 g/dL (11.2-15.7); Lymphocytes # (Auto) 0.89 K/mcL (1.50-4.80); Lymphocytes % (Auto) 20.0 % (15.5-49.0); Mean Corpuscular HGB Conc 30.1 g/dL (31.0-36.0); Monocytes # (Auto) 0.82 K/mcL (0.10-0.90); Monocytes % (Auto) 18.4 % (1.0-12.0); Neutrophils % (Auto) 48.6 % (38.0-78.0); Platelet Count 160 K/mcL (140-440); RBC 3.97 M/mcL (3.59-5.38); WBC 4.5 K/mcL (4.5-11.0)
[2025-06-07] MEDS: LOSARTAN 50 MG TABLET PO SCH (09:14)
[2025-06-07] MEDS: LEVOFLOXACIN 750 MG TABLET PO SCH (12:37)
[2025-06-07] MEDS: MAGNESIUM SULFATE 2 GM/50 ML BAG IV ONE (15:25)
[2025-06-07 18:01] VITALS: TEMP 97.8; O2SAT 93
[2025-06-08] MEDS ORDERED: LEVOFLOXACIN 750 MG TABLET PO SCH (09:00)
== END 2025-06-07 18:36 | disposition home or self-care (01) | DRG 689 ==
LOC: ED 11:52 → MEDSUR 11:52
PROVIDERS: ADMIT Internal Medicine; ATTEND Student in an Organized Health Care Education/Training Program